=== PATIENT | female | born 1965 | race Caucasian/White ===

== ENCOUNTER 2019-12-14 09:09 | Outpatient (CLI) | payer OTHER, SELFPAY | END 2019-12-14 09:10 | disposition home or self-care (01) | LOC: ANHWCLAB 09:14 | PROVIDERS: PCP Internal Medicine; Visit Provider Internal Medicine | DX: E03.9 Hypothyroidism, unspecified (principal) | CPT/HCPCS: 36415; 84443 ==

== ENCOUNTER 2019-12-25 12:24 | Outpatient (CLI) | payer OTHER, SELFPAY ==
[2019-12-25 13:01] LABS: Basophils Absolute Auto 0.1 K/mm3 (0.0-0.1); Eosinophils Absolute Auto 0.5 K/mm3 (0-0.3); Eosinophils Percent Auto 8.3 % (0-4.4); Hematocrit 39.7 % (37.0-47.0); Hemoglobin 12.9 g/dL (12.0-15.0); Immature Granulocyte Absolute 0.01 K/mm3 (0.00-0.031); Immature Granulocyte Percent A 0.2 % (0-0.5); Lymphocytes Absolute Auto 1.77 K/mm3 (0.9-3.2); Lymphocytes Percent Auto 29.5 % (18.3-44.2); Mean Corpuscular HGB Conc 32.5 g/dl (32-36); Mean Corpuscular Hemoglobin 29.2 pg (26-34); Mean Corpuscular Volume 89.8 fl (80-100); Mean Platelet Volume 9.8 fl (7.4-10.4); Monocytes Absolute Auto 0.4 K/mm3 (0.1-0.6); Monocytes Percent Auto 6.2 % (2.6-8.5); Neutrophils Absolute Auto 3.2 K/mm3 (1.3-6.7); Neutrophils Percent Auto 53.8 % (45.5-73.1); Platelet Count Result 273 k/mm3 (150-375); Red Blood Count 4.42 M/mm3 (4.2-5.4); Red Cell Distribution Width 13.3 % (11.5-14.5)
[2019-12-25 13:52] LABS: Alanine Aminotransferase 12 U/L (4-35); Albumin Level 4.3 g/dL (3.5-5.1); Alkaline Phosphatase 91 U/L (38-126); Aspartate Amino Transferase 22 U/L (14-36); Bilirubin,Total 0.7 mg/dL (0.2-1.3); Blood Urea Nitrogen 14 mg/dL (7-17); Calcium 9.5 mg/dL (8.4-10.2); Carbon Dioxide 26 mmol/L (22-30); Chloride 104 mmol/L (98-107); Estimated Glomerular Filt Rate > 60; Glucose 96 mg/dL (65-105); Potassium 4.5 mmol/L (3.4-5.0); Sodium 138 mmol/L (137-145)
== END 2019-12-25 12:25 | disposition home or self-care (01) ==
LOC: ANHWCLAB 12:25
PROVIDERS: PCP Internal Medicine; Visit Provider Internal Medicine
DX: L63.9 Alopecia areata, unspecified (principal)
CPT/HCPCS: 36415; 80053; 85025; 86038; 86039

== ENCOUNTER 2020-09-05 08:14 | Outpatient (CLI) | payer OTHER, SELFPAY ==
--- NOTE | ~2020-09-05 | MM_ITS ---
EXAMINATION: MM screening [facility] BI w shan HISTORY: Screening mammogram TECHNIQUE: Craniocaudal and mediolateral oblique 3-D tomosynthesis images were obtained and synthetic 2-D images were generated. CAD analysis was submitted and interpreted. COMPARISON: 12/08/2018, 12/02/2017, 09/03/2016 BREAST PARENCHYMAL COMPOSITION: There are scattered areas of fibroglandular density. FINDINGS: There is no evidence of suspicious mass, calcification, or architectural distortion to sugg est malignancy in either breast. There has been no suspicious interval change. IMPRESSION: 1. No mammographic evidence of malignancy. 2. Recommend routine screening mammography in one year. BI-RADS Category 1: Negative Reviewed, dictated and finalized at location A. [employer]
== END 2020-09-05 08:15 | disposition home or self-care (01) ==
LOC: ANHIMG 08:16
PROVIDERS: PCP Internal Medicine; Visit Provider Obstetrics & Gynecology Gynecology
DX: Z12.31 Encounter for screening mammogram for malignant neoplasm of breast (principal)
CPT/HCPCS: 77063; 77067

== ENCOUNTER 2022-01-26 07:59 | Outpatient (CLI) | payer OTHER, SELFPAY ==
--- NOTE | ~2022-01-26 | MM_ITS ---
EXAMINATION: MM screening [facility] BI w shan HISTORY: Screening TECHNIQUE: Craniocaudal and mediolateral oblique 3-D tomosynthesis images were obtained and synthetic 2-D images were generated. CAD analysis was submitted and interpreted. COMPARISON: Comparison to multiple prior studies sequentially, with oldest reviewed study dated 08/25. BREAST PARENCHYMAL COMPOSITION: There are scattered areas of fibroglandular density. FINDINGS: There is no evidence of suspicious mass, calcification, or architectural distortion to sugg est malignancy in either breast. There has been no suspicious interval change. IMPRESSION: 1. No mammographic evidence of malignancy. 2. Recommend routine screening mammography in one year. BI-RADS Category 1: Negative Reviewed, dictated and finalized at location A.
--- NOTE | ~2022-01-26 | DEXA_ITS ---
Bone Density Report Name: TAVO MALONE Age: 56 Sex: Female Ethnicity: White Date of : 1965 Indication: postmenopausal; Referring Provider: Heidi Bagley Study: Bone densitometry was performed. Exam Date: January 26, 2022 Accession number: [id number] Bone Density: Region BMD T-score Z-score Classification AP Spine (L1-L4) 0.928 -1.1 -0.1 Osteopenia Femoral Neck (Left) 0.684 -1.5 -0.5 Osteopenia Total Hip (Left) 0.792 -1.2 -0.6 Osteopenia Total Hip Bilateral Avg 0.788 -1.3 -0.6 Osteopenia Femoral Neck (Right) 0.689 -1.4 -0.4 Osteopenia Total Hip (Right) 0.784 -1.3 -0.6 Osteopenia World Health Organization criteria for BMD impression classify patients as: Normal (T-score at or above -1.0), Osteopenia (T-score between -1.0 and -2.5), or Osteoporosis (T-score at or below -2.5). 10-year Fracture Risk(1): Major Osteoporotic Fracture 6.5% Hip Fracture 0.5% Reported Risk Factors: [place] (), Neck BMD=0.684, BMI=25.6 (1) FRAX(R) Version 3.08. Fracture probability calculated for an untreated patient. Fracture probability may be lower if the patient has received treatment. Clinical Information Provided by Patient: Has used the following medications: Vitamin D Patient maximum height was 66 Menopause Age: 54 No regular weight bearing exercise Drinks caffeinated beverages Onset of menses at age 18 Number of children 2 Impression: The patient has low bone mass, based on the Left Femoral Neck T-score. The patient has an estimated ten-year risk of hip fracture of 0.5% and an estimated ten-year risk of major fracture of 6.5%, based on the WHO FRAX algorithm. Discussion: BONE DENSITY IS LOW AT ONE OR MORE SKELETAL SITES. This patient's lowest T-score is low at one or more skeletal sites. It meets the World Health Organization's (WHO) criteria for ?low bone mass? (T-score between -1.0 and -2.5). The patient's 10-year risk of fracture as calculated by FRAX is less than the threshold where pharmacological therapy is recommended by the National Osteoporosis Foundation (NOF). However, all treatment decisions require clinical judgment and consideration of individual patient factors, including patient preferences, comorbidities, previous drug use, risk factors not captured in the FRAX model (e.g., frailty, falls, vitamin D deficiency, increased bone turnover, interval significant decline in bone density) and possible under or overestimation of fracture risk by FRAX. The patient should follow a healthful lifestyle (good nutrition with adequate calcium and vitamin D, and appropriate weight-bearing exercise). Follow-Up: Consider repeating this study in 2 to 3 years to reassess this patient's status, or sooner if there is some new clinical indication. Reported by: COLEMAN on 01/26/2022 8:27:00 AM.
== END 2022-01-26 08:00 | disposition home or self-care (01) ==
PROVIDERS: PCP Internal Medicine; Visit Provider Nurse Practitioner
DX: Z12.31 Encounter for screening mammogram for malignant neoplasm of breast (principal); Z78.0 Asymptomatic menopausal state; M85.88 Other specified disorders of bone density and structure, other site; M85.852 Other specified disorders of bone density and structure, left thigh; M85.851 Other specified disorders of bone density and structure, right thigh
CPT/HCPCS: 77063; 77067; 77080

== ENCOUNTER 2022-08-16 03:08 | Day surgery (SDC) | payer OTHER, SELFPAY ==
[2022-08-09 13:49] VITALS: BMI 25.6
--- NOTE | 2022-08-09 14:09 | PC.NURSE ---
Report to the Outpatient Waiting Room, entrance under the green pavilion located off [facility], at time __6:00AM on date __08/16/22 . OR Time: __7:30AM . Time changes happen often and if your time is changed the preop area will call you the afternoon before. - You and your visitor will be asked to self-screen and do not enter if you have any COVID symptoms. - We encourage only one visitor and NO visitors under age 16 are allowed at this time. Your visitor will receive communication by the phone number that is given day of service. - The patient visitor is requested to social distance or may leave the building when not with patient due to restrictions. - A mask is required within the hospital. Patients may have clear liquids (water, carbonated beverages, clear teas, apple juice) until 3 hours prior to surgery with a maximum of 20 ounces. - No food from midnight until time of surgery Take the following medications with a SIP of water the morning of surgery: ____NONE Medications to discontinue per physician ____HOLD ALL VITAMINS/SUPPLEMENTS 3 DAYS PRE-OP Date to take last dose____08/13/22 Please no make-up, nail hungarian, hairspray, perfume, deodorant, or body powder the day of surgery. No jewelry (including any body piercings) or valuables the day of surgery, leave them at home. Please take a shower or bath the night before, or the morning of, surgery with an antibacterial soap. Wear comfortable, loose fitting clothing. Children are encouraged to wear pajamas. - Jewelry must be removed prior to entering the operating room. Rings and piercings that are not removed may be cut off. - The hospital will not accept responsibility for valuables. - Please leave all valuables, including medications, at home the day of surgery. If you are going home after surgery, a licensed local owner operator truck driver must drive you home. - NO public transportation without another adult. - We recommend that an adult stay with you for 24 hours following discharge. - We also recommend that you do not drive, make important decision, drink alcoholic beverages, or take any drugs that were not prescribed by your health care provider for at least 24 hours after your discharge time. Follow any additional instructions given to you from your surgeon. If you or anyone in your household have experienced Covid symptoms in the past week, please notify your surgeon or the nurse liaison at the phone number below for possible testing. Telephone instructions given to __PATIENT and asked if any additional questions and then verbalized understanding. Patient advised to call surgeon office or pre surgery nurse liaison [phone] if any additional questions.
[2022-08-16] MEDS: ACETAMINOPHEN 500 MG TABLET 1000 MG PO (06:38)
[2022-08-16] MEDS: LACTATED RINGERS 1,000 ML 30 ML IV CONT (06:40)
--- NOTE | 2022-08-16 06:47 | P.PNAN_ITS ---
Anes - Initial Pre Proc Eval Procedure: Operation Date: 08/16/22 07:30 Proposed Procedures p Hysteroscopy Dilation and Curettage - Cherrie Olmstead MD Date/Time: 08/16/22 06:47 Surgeon: Cherrie Olmstead MD Pre Op Diagnosis: post menopausal bleeding Patient Data Age: 56 Gender: F Height: 1.68 m Weight: 72 kg Allergies Allergy/AdvReac Type Severity Reaction Status Date / Time No Known Allergies Allergy Unknown Verified 08/16/22 06:21 Home Medications Medication Instructions Recorded Confirmed Type zolpidem 12.5 mg tablet,extended 12.5 mg PO .AT HS #30 tabs 05/21/22 08/09/22 Rx release,multiphase cefdinir 300 mg capsule 300 mg PO Q12H #14 caps 08/06/22 08/09/22 Rx ascorbic acid (vitamin C) 1,000 mg 1 g PO DAILY 08/09/22 08/09/22 History tablet citalopram 40 mg tablet 40 mg PO HS 08/09/22 08/09/22 History hydroxychloroquine 200 mg tablet 200 mg PO HS 08/09/22 08/09/22 History levothyroxine 100 mcg tablet 100 mcg PO HS 08/09/22 08/09/22 History (Synthroid) spironolactone 50 mg tablet 50 mg PO HS 08/09/22 08/09/22 History Patient hx anesthesia problems: none Family hx anesthesia problems: none Results Review: All pre-operative results and documents have been reviewed as part of the pre- operative evaluation. [facility] Past Medical History Medical History MARY positive (~12/2020) COVID-19 History of anemia Hypothyroidism Insomnia Surgical History Surgical History History of cholecystectomy Family History Family History Mother Family history of malignant neoplasm of cervix Father Carcinoma of colon Social History Social History Smoking status: Never smoker Second hand tobacco smoke exposure: Yes Alcohol intake: current Drinks per week: 4 Substance use: never Substance use type: does not use Living arrangements: with family [facility] Spiritual care concerns: No Anes - Eval Final PreProcedure Day of Procedure 08/16/22 06:47 Patient weight: normal Heart: regular rate and rhythm Lungs: clear to auscultation and normal air movement Airway: Mallampati scale class II Neurological: alert and oriented Last oral intake: >/= 8 hours ASA classification: II Emergent: no Anesthetic plan: proceed Anesthesia type and monitoring: general GIVS Results Review: All pre-operative results and documents have been reviewed as part of the pre- operative evaluation. Informed Consent: The patient's anesthetic plan and its attendant risks and benefits were discussed with the patient/family/POA. Questions were solicited and answers prov ided to the satisfaction of the patient/family/POA.
[2022-08-16 07:06] VITALS: BP 116/76; PULSE 79; RESP 16; TEMP 36.4; O2SAT 97
--- NOTE | 2022-08-16 07:13 | WPDHPUPDATE1 ---
History and Physical Update Update Date/Time: 08/16/22 07:13 History and Physical has been reviewed, including an updated exam of the patient. There are NO changes in the patient's condition. Risks, benefits, and alternatives have been discussed and questions answered. Patient agrees to proceed with procedure.
--- NOTE | 2022-08-16 07:13 | PM.HPGS ---
History of Present Illness History of Present Illness Consent: Risks, benefits, and alternatives have been discussed and questions answered. Patient agrees to proceed with procedure. Chief complaint: post menopausal bleeding Narrative: Linsey Haq is a 56 year old female with postmenopausal bleeding. Recommended to proceed with D&C hysteroscopy. Risks of infection, bleeding, perforation, and possible pathology discussed. Agrees to proceed. Review of Systems Review of Systems: not repeated day of surgery; patient states no changes in status [facility] Past Medical History Medical History (Updated 08/16/22 @ 07:16 by Cherrie Olmstead MD) MARY positive (~12/2020) Hypothyroidism Insomnia Surgical History Surgical History History of cholecystectomy Family History Family History Mother Family history of malignant neoplasm of cervix Father Carcinoma of colon Social History Social History Smoking status: Never smoker Second hand tobacco smoke exposure: Yes Alcohol intake: current Drinks per week: 4 Substance use: never Substance use type: does not use Living arrangements: with family Additional living arrangements comments: [facility] Spiritual care concerns: No Meds Home Medications and Allergies Home Medications Medication Instructions Recorded Confirmed Type zolpidem 12.5 mg tablet,extended 12.5 mg PO .AT HS #30 tabs 05/21/22 08/16/22 Rx release,multiphase cefdinir 300 mg capsule 300 mg PO Q12H #14 caps 08/06/22 08/16/22 Rx ascorbic acid (vitamin C) 1,000 mg 1 g PO DAILY 08/09/22 08/16/22 History tablet citalopram 40 mg tablet 40 mg PO HS 08/09/22 08/16/22 History hydroxychloroquine 200 mg tablet 200 mg PO HS 08/09/22 08/16/22 History levothyroxine 100 mcg tablet 100 mcg PO HS 08/09/22 08/16/22 History (Synthroid) spironolactone 50 mg tablet 50 mg PO HS 08/09/22 08/16/22 History Allergies Allergy/AdvReac Type Severity Reaction Status Date / Time No Known Allergies Allergy Unknown Verified 08/16/22 06:21 Vital Signs Vital Signs - 24 hr 08/16/22 07:06 Temperature 97.5 F L Pulse Rate 79 Respiratory Rate 16 Blood Pressure 116/76 Pulse Oximetry 97 Oxygen Delivery Room Air Exam Const: General: healthy appearing and alert Orientation/consciousness: patient oriented x3 Resp: Effort & Inspection: normal respiratory effort GI: GI Palp: Yes Soft to palpation, No Tenderness to palpation present (GI) and No Palpable mass present : External Female Exam: normal external appearance Speculum Exam - Vagina: normal appearance of the vagina and normal vaginal discharge Speculum Exam - Cervix: normal appearance of the cervix Bimanual exam- vagina & uterus: uterine size normal and consistency normal Bimanual Exam- Adnexa, other: normal adnexae and No adnexal tenderness Neuro: General: patient oriented x3 Assessment and Plan Assessment and plan (1) Post-menopausal bleeding: Code(s): N95.0 - Postmenopausal bleeding Status: Acute Assessment and Plan: Plan to proceed with D&C hysteroscopy.
[2022-08-16] MEDS: KETOROLAC 15 MG/ML VIAL (*BKC) IV PUSH (07:20)
[2022-08-16] MEDS: LIDOCAINE HCL 1% LOCAL INJ 20 ML VIAL 10 ML INFILTRATE (07:40)
--- NOTE | 2022-08-16 07:44 | P.OP_ITS ---
Procedure Note - Detailed Date of Procedure 08/16/22 Pre-op Diagnosis post menopausal bleeding Post-op Diagnosis Same Procedure Performed D&C hysteroscopy Surgeon Cherrie Olmstead MD Anesthesia MAC and Local Findings cervical stenosis; atrophic appearing endometrium Description of Procedure The patient was taken to the operating room and placed in the dorsal lithotomy position. She was prepped and draped in usual sterile fashion. [place] speculum was placed in the vagina and the cervix grasped on the anterior lip with a tenaculum. The uterus was attempted to be sounded the internal cervical stenosis is encountered. The small dilator was used and unable to enter. The os Finders were opened and this os is then able to be entered. The cervix is serially dilated with difficulty to an 8 Hegar. The uterus sounds to 7cm. The diagnostic hysteroscope was placed with no abnormalities noted. Hysteroscope was removed. Medium sharp curette is used to curette the endometrium until a good uterine cry was noted in all areas. Minimal materials obtained consistent with the atrophic appearance. Estimated Blood Loss 5 Drains No Packing No Pathology Yes ( endometrial curettings) Complications No immediate complications Condition Stable Disposition PACU
--- NOTE | 2022-08-16 07:46 | WPDHPUPDATE1 ---
History and Physical Update Update Date/Time: 08/16/22 07:46 History and Physical has been reviewed, including an updated exam of the patient. There are NO changes in the patient's condition. Risks, benefits, and alternatives have been discussed and questions answered. Patient agrees to proceed with procedure.
[2022-08-16 07:50] VITALS: BP 106/73; PULSE 66; RESP 14
[2022-08-16 08:20] VITALS: BP 122/81; PULSE 61; RESP 12
== END 2022-08-16 08:40 | disposition home or self-care (01) ==
PROVIDERS: PCP Internal Medicine; Visit Provider Obstetrics & Gynecology Gynecology
PROC: 0U5B8ZZ Destruction of Endometrium, Via Natural or Artificial Opening Endoscopic (ICD-10-PCS; CPT 58563; principal; 2022-08-16 07:30)
DX: N95.0 Postmenopausal bleeding (principal); E03.9 Hypothyroidism, unspecified
CPT/HCPCS: 58558; 88305; A9270; J1885; J2250; J2704; J3010; J7030; J7120

== ENCOUNTER 2023-04-08 07:53 | Outpatient (CLI) | payer OTHER, SELFPAY ==
--- NOTE | ~2023-04-08 | MM_ITS ---
EXAMINATION: MM screening [facility] BI w shan HISTORY: Screening mammogram TECHNIQUE: Craniocaudal and mediolateral oblique 3-D tomosynthesis images were obtained and synthetic 2-D images were generated. CAD analysis was submitted and interpreted. COMPARISON: January 26, 2022, September 05, 2020, December 08, 2018 bilateral screening mammogram examina tions BREAST PARENCHYMAL COMPOSITION: There are scattered areas of fibroglandular density. FINDINGS: There is no evidence of suspicious mass, calcification, or architectural distortion to sugg est malignancy in either breast. There has been no suspicious interval change. IMPRESSION: 1. No mammographic evidence of malignancy. 2. Recommend routine screening mammography in one year. BI-RADS Category 1: Negative Reviewed, dictated and finalized at location A.
== END 2023-04-08 07:54 | disposition home or self-care (01) ==
PROVIDERS: PCP Internal Medicine; Visit Provider Obstetrics & Gynecology Gynecology
DX: Z12.31 Encounter for screening mammogram for malignant neoplasm of breast (principal)
CPT/HCPCS: 77063; 77067

== ENCOUNTER → 2023-08-02 15:18 | Outpatient (CLI) | payer OTHER, SELFPAY ==
--- NOTE | ~2023-08-02 | CT_ITS ---
CT scan of the Neck Technique: 2.5 mm axial scans were obtained through the neck after intravenous administration of 75 c c Omnipaque 350. Coronal and sagittal reconstructions of the neck were obtained. Dose reduction techn ique was used on this scan by utilizing automated exposure control and iterative reconstruction techn ique. The dose-length product (DLP) was 375.95 mGy-cm. Clinical History: 1 cm left submandibular mass Findings: There is no evidence of any significant cervical lymphadenopathy. Several small, nonenlarged jugulo- digastric and posterior cervical lymph nodes are noted bilaterally. Parapharyngeal spaces appear norm al bilaterally. Parotid glands are unremarkable. There is mild asymmetric prominence of the left subm andibular gland, with an adjacent mildly prominent left submandibular lymph node measuring 8 mm in di ameter.. The pharyngeal mucosal spaces appear normal. No soft tissue masses are seen in the neck. The thyroid gland appears normal. Images of the lung apices reveal apparent bilateral low-density hil ar lymphadenopathy, measuring up to 1.6 cm in greatest diameter. Impression: Probable bilateral hilar lymphadenopathy, with somewhat low-density. Findings could reflect metastati c disease versus possibly infectious/inflammatory lymph nodes. Correlate clinically. Dedicated chest imaging is advised to better evaluate. 8mm minimally prominent left submandibular lymph node with minimal asymmetric prominence of the left submandibular gland. These findings could account for the clinically palpable mass, though neither is felt to be clinically significant. Reviewed, dictated and finalized at [facility]. Impression: Probable bilateral hilar lymphadenopathy, with somewhat low-density. Findings c ould reflect metastatic disease versus possibly infectious/inflammatory lymph n odes. Correlate clinically. Dedicated chest imaging is advised to better evalua te. 8mm minimally prominent left submandibular lymph node with minimal asymmetric p rominence of the left submandibular gland. These findings could account for the clinically palpable mass, though neither is felt to be clinically significant.
== END ==
PROVIDERS: PCP Family Medicine; Visit Provider Otolaryngology
DX: K11.8 Other diseases of salivary glands (principal)
CPT/HCPCS: 70491; Q9967

== ENCOUNTER 2023-08-19 10:19 | Outpatient (CLI) | payer OTHER, SELFPAY ==
--- NOTE | ~2023-08-19 | CT_ITS ---
EXAMINATION: CT diagnostic chest wo con DATE: 08/19/2023 10:35 INDICATION: Localized enlarged lymph nodes TECHNIQUE: Computed tomography (CT) of the chest was performed without intravenous contrast. The dose -length product was 159.84 mGy-cm. Automated exposure control and iterative reconstruction technique were employed. COMPARISON: None FINDINGS: There is mediastinal lymphadenopathy. Heart size normal. No significant pleural or pericard ial effusion. No axillary lymphadenopathy. No significant vascular abnormality. There are cholecystec freddy clips. No endobronchial lesions. No focal airspace consolidation. No pneumothorax. There is a 7 mm fissural nodule along the anterior margin of the minor fissure, image 79. IMPRESSION: 1. Right fissural nodule along the anterior margin of the minor fissure measuring 7 mm, likely benign . Consider follow-up low dose CT chest in 12 months. 2: Mild mediastinal lymphadenopathy, likely reactive. Reviewed, dictated and finalized at location B. IMPRESSION: 1. Right fissural nodule along the anterior margin of the minor fissure measuri ng 7 mm, likely benign. Consider follow-up low dose CT chest in 12 months. 2: Mild mediastinal lymphadenopathy, likely reactive.
== END 2023-08-19 10:20 | disposition home or self-care (01) ==
PROVIDERS: PCP Nurse Practitioner; Visit Provider Nurse Practitioner
DX: R59.0 Localized enlarged lymph nodes (principal)
CPT/HCPCS: 71250

== ENCOUNTER 2023-12-09 06:48 | Day surgery (SDC) | payer OTHER, SELFPAY ==
[2023-12-05 11:30] VITALS: BMI 25.8
--- NOTE | 2023-12-07 14:26 | SUR.PREOP ---
Patient called regarding upcoming procedure. Reviewed preop instructions, appointment times, and procedure prep.
--- NOTE | 2023-12-08 13:21 | PM.HPGS ---
History of Present Illness History of Present Illness Consent: Risks, benefits, and alternatives have been discussed and questions answered. Patient agrees to proceed with procedure. Chief complaint: family hx colon ca Narrative: Linsey Haq is a 58 year old female Referred for colon cancer screening. She has a family history of colon cancer. Her father had colon cancer Her last colonoscopy was 5 years ago. Review of Systems Review of Systems: All systems reviewed & are unremarkable except as noted in HPI and below PMFSH Past Medical History Medical History MARY positive (~12/2020) Anxiety Hyperlipidemia Hypothyroidism Insomnia Surgical History Surgical History History of cholecystectomy Family History Family History Mother Family history of malignant neoplasm of cervix Father Carcinoma of colon AML (acute myeloblastic leukemia) Social History Social History Smoking status: Never smoker Second hand tobacco smoke exposure: Yes Alcohol intake: current Drinks per week: 3 Alcohol use details: BEERS Substance use: never Substance use type: does not use Lack of Transportation: No Lack of Food: Never True Current Housing: I Have Housing Concerned About Future Housing: No Difficulty Paying Gas/Electric Bills: No Difficulty Paying for Meds: No Currently Unemployed: No Education: High School Diploma/GED Difficulty w/ Childcare or Family Care: No Living arrangements: with family Additional living arrangements comments: [facility] Gender identity (if verbalized by the patient): Female Sexual Orientation (if Verbalized by the Patient): Straight or Heterosexual Spiritual care concerns: No Meds Home Medications and Allergies Home Medications Medication Instructions Recorded Confirmed Type spironolactone 50 mg tablet 100 mg PO HS 10/22/22 12/05/23 History progesterone micronized 100 mg 100 mg PO QAM 04/28/23 12/05/23 History capsule levothyroxine 88 mcg tablet 88 mcg PO DAILY #90 tabs 07/06/23 12/05/23 Rx (Synthroid) zolpidem 12.5 mg tablet,extended 12.5 mg PO QHS #30 tabs 11/28/23 12/05/23 Rx release,multiphase (Ambien CR) citalopram 40 mg tablet See Rx Instructions .Route 12/01/23 12/05/23 Rx .COMPLEX #90 tabs cholecalciferol (vitamin D3) 50 50 mcg PO DAILY 12/05/23 12/05/23 History mcg (2,000 unit) capsule (Vitamin D3) Allergies Allergy/AdvReac Type Severity Reaction Status Date / Time No Known Allergies Allergy Unknown Verified 12/09/23 07:40 Exam Const: General: alert Orientation/consciousness: patient oriented x3 Resp: Auscultation: clear to auscultation bilaterally Cardio: Rhythm: regular rhythm GI: GI Palp: Yes Soft to palpation and No Tenderness to palpation present (GI) Neuro: General: patient oriented x3 Assessment and Plan Assessment and plan (1) Family history of colon cancer in father: Code(s): Z80.0 - Family history of malignant neoplasm of digestive organs Status: Acute Assessment and Plan: Colonoscopy with possible biopsy or polypectomy or cautery or injection of substances.
[2023-12-09 07:41] VITALS: BP 108/78; PULSE 99; RESP 18; TEMP 36.1; O2SAT 100
[2023-12-09] MEDS: LACTATED RINGERS 1,000 ML 150 ML IV CONT (07:49)
--- NOTE | 2023-12-09 08:53 | WPDANESEPPF ---
Anes - Initial Pre Proc Eval Procedure: Operation Date: 12/09/23 09:00 Proposed Procedures p Colonoscopy - Lan Banks MD Date/Time: 12/09/23 08:53 Surgeon: Lan Banks MD Pre Op Diagnosis: family hx colon ca Patient Data Age: 58 Gender: F Height: 1.68 m Weight: 72.9 kg Last Vital Signs Temp 97 F L 12/09/23 07:41 Pulse 99 12/09/23 07:41 Resp 18 12/09/23 07:41 BP 108/78 12/09/23 07:41 Pulse Ox 100 12/09/23 07:41 O2 Del Method Room Air 12/09/23 07:41 Allergies Allergy/AdvReac Type Severity Reaction Status Date / Time No Known Allergies Allergy Unknown Verified 12/09/23 07:40 Home Medications Medication Instructions Recorded Confirmed Type spironolactone 50 mg tablet 100 mg PO HS 10/22/22 12/05/23 History progesterone micronized 100 mg 100 mg PO QAM 04/28/23 12/05/23 History capsule levothyroxine 88 mcg tablet 88 mcg PO DAILY #90 tabs 07/06/23 12/05/23 Rx (Synthroid) zolpidem 12.5 mg tablet,extended 12.5 mg PO QHS #30 tabs 11/28/23 12/05/23 Rx release,multiphase (Ambien CR) citalopram 40 mg tablet See Rx Instructions .Route 12/01/23 12/05/23 Rx .COMPLEX #90 tabs cholecalciferol (vitamin D3) 50 50 mcg PO DAILY 12/05/23 12/05/23 History mcg (2,000 unit) capsule (Vitamin D3) Patient hx anesthesia problems: none Family hx anesthesia problems: none Results Review: All pre-operative results and documents have been reviewed as part of the pre-operative evaluation. [facility] Past Medical History Medical History MARY positive (~12/2020) Anxiety Hyperlipidemia Hypothyroidism Insomnia Surgical History Surgical History History of cholecystectomy Family History Family History Mother Family history of malignant neoplasm of cervix Father Carcinoma of colon AML (acute myeloblastic leukemia) Social History Social History Smoking status: Never smoker Second hand tobacco smoke exposure: Yes Alcohol intake: current Drinks per week: 3 Alcohol use details: BEERS Substance use: never Substance use type: does not use Lack of Transportation: No Lack of Food: Never True Current Housing: I Have Housing Concerned About Future Housing: No Difficulty Paying Gas/Electric Bills: No Difficulty Paying for Meds: No Currently Unemployed: No Education: High School Diploma/GED Difficulty w/ Childcare or Family Care: No Living arrangements: with family Additional living arrangements comments: HUSB Gender identity (if verbalized by the patient): Female Sexual Orientation (if Verbalized by the Patient): Straight or Heterosexual Spiritual care concerns: No Anes - Eval Final PreProcedure Day of Procedure 12/09/23 08:53 Patient weight: normal Heart: regular rate and rhythm Lungs: clear to auscultation Airway: Mallampati scale class II Neurological: alert and oriented Last oral intake: >/= 8 hours ASA classification: II Emergent: no Anesthetic plan: proceed Anesthesia type and monitoring: general GIVS and standard monitoring Results Review: All pre-operative results and documents have been reviewed as part of the pre-operative evaluation. Informed Consent: The patient's anesthetic plan and its attendant risks and benefits were discussed with the patient/family/POA. Questions were solicited and answers provided to the satisfaction of the patient/family/POA.
[2023-12-09 09:12] VITALS: BP 95/66; PULSE 75; RESP 16; O2SAT 98
[2023-12-09 09:22] VITALS: BP 103/70; PULSE 71; RESP 18; O2SAT 99
[2023-12-09 09:32] VITALS: BP 114/73; PULSE 70; RESP 20; O2SAT 100
== END 2023-12-09 09:38 | disposition home or self-care (01) ==
PROVIDERS: PCP Nurse Practitioner; Visit Provider Internal Medicine Gastroenterology
PROC: 0DJD8ZZ Inspection of Lower Intestinal Tract, Via Natural or Artificial Opening Endoscopic (ICD-10-PCS; CPT 45378; principal; 2023-12-09 09:00)
DX: Z12.11 Encounter for screening for malignant neoplasm of colon (principal); Z80.0 Family history of malignant neoplasm of digestive organs; E78.5 Hyperlipidemia, unspecified; E03.9 Hypothyroidism, unspecified; F41.9 Anxiety disorder, unspecified
CPT/HCPCS: 45378; J2704; J7120

== ENCOUNTER 2024-10-05 13:43 | Outpatient (CLI) | payer OTHER, SELFPAY ==
--- NOTE | ~2024-10-05 | MM_ITS ---
EXAMINATION: MM screening susnhine BI w shan HISTORY: Screening TECHNIQUE: Craniocaudal and mediolateral oblique 3-D tomosynthesis images were obtained and synthetic 2-D images were generated. CAD analysis was submitted and interpreted. COMPARISON: Comparison to multiple prior studies sequentially, with oldest reviewed study dated 06/2018. BREAST PARENCHYMAL COMPOSITION: Not dense: There are scattered areas of fibroglandular density. FINDINGS: There is a focal asymmetry superiorly in the right breast on MLO view which was not seen on prior examinations. The left breast is stable without evidence for malignancy. IMPRESSION: 1. Focal right breast asymmetry superiorly on MLO view, middle third. 2. Additional mammographic views and possible breast ultrasound are recommended. BI-RADS Category 0: Incomplete: Needs additional imaging evaluation. Reviewed, dictated and finalized at location B. RULES PRINTING MACHINE OPERATOR IMPRESSION: 1. Focal right breast asymmetry superiorly on MLO view, middle third. 2. Additional mammographic views and possible breast ultrasound are recommended . BI-RADS Category 0: Incomplete: Needs additional imaging evaluation.
--- OUTSIDE RECORDS SUMMARY | 2024-10-05 13:46 | XMS_ITS | Continuity of Care Document ---
Author Organization [facility] Address [address] [place] [address] Phone Care Team Providers Care Motor Tune Up Specialist Name Role Phone Unavailable Unavailable Unavailable Advance Directives Directive Yes / No Effective Date File Name No Information Encounters Encounter Description Practice Location Reason(s) For Visit Diagnoses Date Provider Providers [facility] [address], [place], [place], [id number], [place] tel:[phone] [address] [facility] [address] No Information Sep-2 9-200 0 No Information Family History Family Member Type Diagnosis Age At Onset No Information Payers Payer name Insurance type Covered green party ID Authoriza tion(s) No Information Social History Type Description Quantity Date Captured Comments Sex Female Smoking Status No Information Chief Complaint And Reason For Visit No Information Reason For Referral Reason For Referral No Information History Of Present Illness Encounter Date Complaint History Of Prese nt Illness No Information Functional Status Date Functional Assessmen t No Information Instructions Date Instruction Additional Infor mation No Information Assessments Type Assessment Date No Information Patient Care Teams Name Effective Dates (start - stop) Status Members No Information
== END 2024-10-05 13:44 | disposition home or self-care (01) ==
LOC: ANHIMG 13:44
PROVIDERS: PCP Internal Medicine; Visit Provider Obstetrics & Gynecology Gynecology
DX: Z12.31 Encounter for screening mammogram for malignant neoplasm of breast (principal); R92.8 Other abnormal and inconclusive findings on diagnostic imaging of breast
CPT/HCPCS: 77063; 77067

== ENCOUNTER 2024-11-07 10:52 | Outpatient (CLI) | payer OTHER, SELFPAY ==
--- NOTE | ~2024-11-07 | MM_ITS ---
EXAMINATION: MM diagnostic sunshine RT w shan HISTORY: Right breast asymmetry TECHNIQUE: Additional 3-D tomosynthesis images of the right breast were performed and synthetic 2-D i mages were generated. CAD analysis was submitted and interpreted. COMPARISON: 10/05/2024, 04/08/2023 BREAST PARENCHYMAL COMPOSITION:Not Dense. There are scattered areas of fibroglandular density. FINDINGS: Right breast asymmetry effaces with spot compression. No persistent mass lesion or distorti on. No suspicious microcalcification. IMPRESSION: No mammographic evidence for malignancy. BI-RADS Category 1: Negative Reviewed, dictated and finalized at location . IZATION MANAGEMENT MANAGER
== END 2024-11-07 10:53 | disposition home or self-care (01) ==
LOC: ANHIMG 10:53
PROVIDERS: PCP Internal Medicine; Visit Provider Obstetrics & Gynecology Gynecology
DX: R92.8 Other abnormal and inconclusive findings on diagnostic imaging of breast (principal)
CPT/HCPCS: 77061; 77065; G0279

== ENCOUNTER 2024-12-12 07:49 | Outpatient (CLI) | payer OTHER, SELFPAY ==
--- NOTE | ~2024-12-12 | CT_ITS ---
EXAMINATION: CT diagnostic chest w con DATE: 12/12/2024 08:14 INDICATION: Mediastinal lymphadenopathy follow-up. TECHNIQUE: Computed tomography (CT) of the chest was performed with 75 cc Omnipaque 350 intravenous c ontrast. The dose-length product was 141.13 mGy-cm. Automated exposure control and iterative reconstr uction technique were employed. COMPARISON: CT dated 08/19/2023 FINDINGS: There is mediastinal, bilateral hilar and subcarinal lymphadenopathy. No axillary lymphaden opathy. There is normal appearance to the aorta without aneurysm or dissection. No significant pleura l or pericardial effusion. There are cholecystectomy clips. There is a hypovascular mass of the right hepatic lobe measuring 2.2 cm. This does not appear significantly changed compared with prior study allowing for differences of technique and contrast administration. There is subtle peripheral nodular enhancement of the mass, best seen on coronal reconstructions, most likely benign hemangioma in the absence of known malignancy. The spleen, pancreas, adrenal glands and visualized aspects of the kidne ys are unremarkable. No upper abdominal lymphadenopathy. There is a stable 7 mm fissural nodule on th e right without significant change. There is a 4 mm fissural nodule, coronal image 32. There is a 6 m m fissural nodule, coronal image 36 without significant change. No acute osseous abnormality. IMPRESSION: 1. Mediastinal and bilateral hilar lymphadenopathy without significant change allowing for difference s of technique. Differential diagnosis includes reactive lymph node enlargement as well as lymphoma a nd metastatic disease. 2: Hypovascular liver mass measuring 2.2 cm in the right hepatic lobe without significant change allo wing for differences of technique. The absence of known malignancy this likely represents a benign ma ss such as hemangioma. 3: Pulmonary nodules on the right, largest measuring 7 mm anteriorly involving the fissure, likely be nign given the lack of significant interval change. Reviewed, dictated and finalized at location B. NGE MAKER HELPER IMPRESSION: 1. Mediastinal and bilateral hilar lymphadenopathy without significant change a llowing for differences of technique. Differential diagnosis includes reactive lymph node enlargement as well as lymphoma and metastatic disease. 2: Hypovascular liver mass measuring 2.2 cm in the right hepatic lobe without s ignificant change allowing for differences of technique. The absence of known m alignancy this likely represents a benign mass such as hemangioma. 3: Pulmonary nodules on the right, largest measuring 7 mm anteriorly involving the fissure, likely benign given the lack of significant interval change.
--- OUTSIDE RECORDS SUMMARY | 2024-12-12 07:53 | XMS_ITS | Continuity of Care Document ---
Author Organization [facility] Address [address] [place] [address] Phone Care Team Providers Care Director Of Community Services Name Role Phone Unavailable Unavailable Unavailable Advance Directives Directive Yes / No Effective Date File Name No Information Encounters Encounter Description Practice Location Reason(s) For Visit Diagnoses Date Provider Providers Copied on Encounter [facility], [address], [place], [place], [id number], [place] tel:[phone] [address] [facility] [address] No Information Sep-2 9-200 0 No Information Family History Family Member Type Diagnosis Age At Onset No Information Payers Payer name Insurance type Covered libertarian ID Authoriza tion(s) No Information Social History [...]
== END 2024-12-12 07:50 | disposition home or self-care (01) ==
PROVIDERS: PCP Nurse Practitioner; Visit Provider Otolaryngology
DX: J01.00 Acute maxillary sinusitis, unspecified (principal); J98.59 Other diseases of mediastinum, not elsewhere classified; R89.0 Abnormal level of enzymes in specimens from other organs, systems and tissues; R91.8 Other nonspecific abnormal finding of lung field
CPT/HCPCS: 71260; Q9967

== ENCOUNTER 2025-01-31 07:19 | Outpatient (CLI) | payer OTHER, SELFPAY ==
--- NOTE | ~2025-01-31 | PE_ITS ---
EXAMINATION: PET skull to mid thigh DATE: 01/31/2025 10:01 INDICATION: Non-Hodgkin's lymphoma TECHNIQUE: Blood glucose level was 91 mg/dL. 8.122 mCi of 18-fluorodeoxyglucose (18-FDG) was administ ered i.v. Low dose computed tomography (CT) images were acquired from the base of the brain to the pr oximal thighs for attenuation correction and anatomic localization. Positron emission tomography (PET ) images were acquired in the same distribution beginning 50 minutes after injection. Images includin g fused PET/CT images were reconstructed in axial, coronal, and sagittal planes. Automated exposure c ontrol technique was employed. The dose-length product was 851.74mGy-cm. COMPARISON: Chest CT dated 12/12/2024 FINDINGS: Head/neck: There is symmetric increased activity in the oral cavity, palatine tonsils, parotid glands, submandi bular glands, esophagus, laryngeal muscles and ocular muscles without CT correlate, likely physiologi c. No pathologically enlarged cervical lymphadenopathy or suspicious foci of increased FDG uptake in the visualized head or neck. Chest: Mild dependent atelectasis in the bilateral lower lobes, right greater than left. There are few scatt ered pulmonary nodules. These include a pair of nodules each together measuring 1.4 x 0.8 cm at the j unction of the left upper lobe and lingula with maximal SUV of 6.5. These each measure approximately 6 mm on the prior high resolution CT from 12/12/2024 which appear increased in size from approximately 3-[address] from 08/19/2023. There are a few additional pulmonary nodules including three 6 -7 mm nodules in the right middle lobe with minimal associated activity with maximal SUV of 1.5. Ther e is also a 4-5 mm nodule along the left major fissure without evident FDG activity. The numerous sma ller pulmonary nodule with tree-in-bud pattern in the right middle lobe evident on the prior CT have resolved minimal likely infectious or inflammatory in etiology. No pleural effusion. Heart size is no rmal. No pericardial effusion. Thoracic aorta is normal in caliber. There are multiple FDG avid godfrey l-sized to mildly enlarged mediastinal and bilateral hilar lymph nodes. The majority are difficult to distinguish from the adjacent vasculature on noncontrast imaging for quantitative assessment of size but which appear subjectively without significant change since the prior CT. These include a 1.5 x 1 .4 cm precarinal lymph node with maximal SUV of 15. Abdomen/pelvis/proximal thighs: Physiologic renal accumulation and excretion of FDG activity in the kidneys, bladder and along portio ns of ureters. End seen is an approximately 2.3 cm hypodense in the right hepatic lobe which appears isointense to the surrounding liver on the PET imaging and with peripheral discontiguous puddling of contrast on the prior CT most consistent with a hemangioma. Cholecystectomy clips the gallbladder fos sa. The pancreas, spleen and bilateral adrenal glands are normal. Mild uptake scattered throughout th e bowels without radiologic correlate, also likely physiologic. Normal appendix. Uterus and bilateral adnexa are unremarkable. No other abnormal foci of increased FDG uptake or pathologically enlarged l ymphadenopathy in the abdomen, pelvis or proximal thighs. Musculoskeletal: No suspicious lytic, blastic or abnormally FDG avid bone lesions. IMPRESSION: 1. Multiple FDG avid normal-sized to mildly enlarged mediastinal and bilateral hilar lymph nodes cons istent with provided history of non-Hodgkin's lymphoma. 2. A few bilateral pulmonary nodules, the most concerning are a pair of nodules at the junction of th e left middle lobe and lingula which demonstrate mild FDG uptake with maximal SUV of 6.5 which appear s to increase in size since CT dated 08/19/2023 which is concerning for malignancy which could be omari neelima, metastatic or lymphoma. Percutaneous biopsy would be problematic given the subcentimeter size o f the nodules as ulcer location abutting a relatively large caliber pulmonary vein branch. 3. No abnormal uptake associated with a 2.3 cm hypodense hepatic lesion with enhancement pattern on p rior CT most consistent with a hemangioma. Reviewed, dictated and finalized at location B. IMPRESSION: 1. Multiple FDG avid normal-sized to mildly enlarged mediastinal and bilateral hilar lymph nodes consistent with provided history of non-Hodgkin's lymphoma. 2. A few bilateral pulmonary nodules, the most concerning are a pair of nodules at the junction of the left middle lobe and lingula which demonstrate mild FDG uptake with maximal SUV of 6.5 which appears to increase in size since CT date d 08/19/2023 which is concerning for malignancy which could be primary, metasta tic or lymphoma. Percutaneous biopsy would be problematic given the subcentimet er size of the nodules as ulcer location abutting a relatively large caliber pu lmonary vein branch. 3. No abnormal uptake associated with a 2.3 cm hypodense hepatic lesion with en hancement pattern on prior CT most consistent with a hemangioma.
--- OUTSIDE RECORDS SUMMARY | 2025-01-31 07:22 | XMS_ITS | Clinical Summary ---
Author Organization [facility]adette palomo [facility] Address [address] [facility] [place] [address] Care Team Providers Care High School Science Tutor Name Role Phone Unavailable Primary Care Provider Unavailabl e Allergies No known active allergies Medications citalopram (CeleXA) 40 mg tablet Take 40 mg by mouth daily. 12/11/2024 Active levothyroxine 88 mcg tablet Take 88 mcg by mouth daily. 11/13/2024 Active zolpidem (AMBIEN CR) 12.5 mg Controlled Release tablet Take 12.5 mg by mouth nightly as needed for Insomnia. 12/24/2024 Active progesterone micronized (PROMETRIUM) 100 mg Capsule Take 100 mg by mouth daily. 12/08/2024 Active spironolactone (ALDACTONE) 100 mg tablet Take 100 mg by mouth daily. 10/27/2024 Active Active Problems No known active problems Encounters Date Type Department Care Team Description 01/22/2025 External Device Data STL ABSTRACTION Provider, Abstract 01/22/2025 External Device Data STL ABSTRACTION Provider, Abstract 01/22/2025 External Device Data STL ABSTRACTION Provider, Abstract 01/17/2025 3:00 PM CDT Office Visit [facility] Oncology and Hematology - [place] [address] [address] Terence Sheridan MD Non-Hodgkin's lymphoma, unspecified body region, unspecified non-Hodgkin lymphoma type (CMS/HCC) (Primary Dx) from Last 3 Months Family History Medical History Relation Name Comments No Known Problems Brother No Known Problems Child 1 No Known Problems Child 2 Colon Cancer Father AML Diabetes Father Cervical Cancer Mother No Known Problems Sister Relation Name Status Comments Brother Alive Child 1 Alive Child 2 Alive Father Alive Mother Sister Alive Social History Tobacco Use Types Packs/Day Years Used Date Smoking Tobacco: Never Smokeless Tobacco: Never Alcohol Use Standard Drinks/Week Comments Never 0 (1 standard drink = 0.6 oz pur e alcohol) Comments Unknown Sex and Gender Information Value Date Recorded Sex Assigned at Not on file Legal Sex Female 2:22 PM CDT Gender Identity Not on file Sexual Orientation Not on file Last Filed Vital Signs Vital Sign Reading Time Taken Comments Blood Pressure 120/76 01/17/2025 2:49 PM CDT Pulse 73 01/17/2025 2:49 PM CDT Temperature 36.2 C (97.2 F) 01/17/2025 2:49 PM CDT Respiratory Rate 16 01/17/2025 2:49 PM CDT Oxygen Saturation 97% 01/17/2025 2:49 PM CDT Inhaled Oxygen Concentration - - Weight 70 kg (154 lb 6.4 oz) 01/17/2025 2:49 PM CDT Height 167.6 cm (5' 6 ) 01/17/2025 2:49 PM CDT Body Mass Index 24.92 01/17/2025 2:49 PM CDT Plan of Treatment Upcoming Encounters Date Type Department Care Team (Late st Contact Info) Description 02/06/2025 4:00 PM CDT Telephone Check Up [facility] Oncology and Hematology - [place] [address] [facility] [address] [place] [address] Terence Sheridan MD [address] [facility] [address] [place] [address] Health Maintenance Due Date Last Done Comments DTAP/TDAP/TD VACCINES (1 - Tdap) 1986 HEPATITIS B VACCINES (1 of 3 - 19+ 3-dose series) 08/24 HPV/Cotest (21-29) 1988 CERVICAL CANCER SCREENING 1997 HPV/Cotest (30-65) 1997 PAP SMEAR 1997 BREAST CANCER SCREENING 2007 COLORECTAL SCREENING 2012 Colorectal Cancer Screening 2012 FIT-DNA Q 3 years 2012 FIT/FOBT Q 1 year 2012 Flex Sig/CT Colonography Q 5 years 2012 ZOSTER VACCINE (1 of 2) 2017 INFLUENZA VACCINE (#1) 2024 Insurance
--- OUTSIDE RECORDS SUMMARY | 2025-01-31 07:22 | XMS_ITS | Continuity of Care Document ---
Author Organization [facility] Address [address] [place] [address] Phone Care Team Providers Care Teachers Assistant Name Role Phone Unavailable Unavailable Unavailable Advance Directives Directive Yes / No Effective Date File Name No Information Encounters Encounter Description Practice Location Reason(s) For Visit Diagnoses Date Provider Providers [facility] [address], [place], [place], [id number], [place] tel:[phone] [address] [facility] [address] No Information Sep-2 9-200 0 No Information Family History Family Member Type Diagnosis Age At Onset No Information Payers Payer name Insurance type Covered democrat ID Authoriza tion(s) No Information Social History [...]
[2025-01-31 07:59] LABS: Glucose Point of Care 91 mg/dl (65-105)
== END 2025-01-31 07:20 | disposition home or self-care (01) ==
PROVIDERS: PCP Nurse Practitioner; Visit Provider Internal Medicine Hematology & Oncology
DX: C85.90 Non-Hodgkin lymphoma, unspecified, unspecified site (principal)
CPT/HCPCS: 78815; A9552